=== PATIENT | male | born 1930 | race Caucasian/White ===

== ENCOUNTER → 2018-03-23 | Outpatient (CLI) | payer OTHER | END | disposition home or self-care (01) | LOC: RAH 09:49 | PROVIDERS: ATTEND Nurse Practitioner Family | DX: K80.20 Calculus of gallbladder without cholecystitis without obstruction (principal); K44.9 Diaphragmatic hernia without obstruction or gangrene; I10 Essential (primary) hypertension; E55.9 Vitamin D deficiency, unspecified; D48.5 Neoplasm of uncertain behavior of skin; E78.00 Pure hypercholesterolemia, unspecified | CPT/HCPCS: 74176 ==

== ENCOUNTER 2020-05-15 10:48 | Inpatient (IN) | payer OTHER ==
[~2020-05-15] VITALS: Ht 152.4 cm; Wt 56.6 kg
[2020-05-15 11:26] LABS: HEMATOCRIT 35.7 % (42-54); LYMPHOCYTES % (AUTO) 23.8 % (21.0-51.0); MEAN CORPUSCULAR HEMOGLOBIN 37.3 pg (27.0-33.0); MEAN CORPUSCULAR HGB CONC 33.6 g/dL (32.0-36.0); MEAN CORPUSCULAR VOLUME 110.9 fL (79-99); MONOCYTES % (AUTO) 27.3 % (3.0-13.0); NEUTROPHILS % (AUTO) 46.6 % (40.0-77.0); PLATELET COUNT (AUTO) 171 K/uL (130-400); RED BLOOD CELL COUNT(AUTO) 3.22 MIL/uL (4.50-6.20); RED CELL DISTRIBUTION WIDTH 13.9 % (11.0-15.5); WHITE BLOOD COUNT (AUTO) 2.6 K/uL (4.8-10.8)
[2020-05-15 11:38] LABS: INR 0.99 (0.85-1.15); PARTIAL THROMBOPLASTIN TIME 22.3 SEC (26.3-35.5); PROTHROMBIN TIME 10.7 SEC (9.6-11.6)
[2020-05-15 11:53] LABS: CREATININE 0.9 mg/dL (0.5-1.5); POTASSIUM 4.4 mmol/L (3.5-5.1)
[2020-05-15 12:03] LABS: BILIRUBIN,TOTAL 0.6 mg/dL (0.2-1.0); TOTAL PROTEIN, SERUM 8.1 g/dL (6.0-8.3)
[2020-05-15 12:56] LABS: BAND NEUTROPHILS % (MANUAL) 5 % (0-2); LYMPHOCYTES % (MANUAL) 36 % (22-44); MAN.DIFF COMMENT-IMPRESSION MANUAL DIFFERENTIAL; MONOCYTES % (MANUAL) 17 % (2-9); SEGMENTED NEUTROPHILS % 42 % (40-70)
[2020-05-15 12:57] LABS: PLATELET MORPHOLOGY COMMENT ADEQUATE
[2020-05-15 16:40] LABS: APPEARANCE,URINE Clear (CLEAR); BILIRUBIN,URINE Negative (NEGATIVE); COLOR,URINE Yellow (YELLOW); GLUCOSE, URINE (UA) Negative (NEGATIVE); KETONES,URINE 15 mg/dL (NEGATIVE); LEUKOCYTE ESTERASE ,URINE Negative (NEGATIVE); NITRATE,URINE Negative (NEGATIVE); OCCULT BLOOD,URINE Nonhemolyzed Trace (NEGATIVE); PH,URINE 5.5 (5.0-8.0); PROTEIN,URINE POS 1+ mg/dL (NEGATIVE)
[2020-05-15 16:46] LABS: AMPHET/METH SCREEN,URINE NEGATIVE (NEGATIVE); BARBITURATE SCREEN, URINE NEGATIVE (NEGATIVE); BENZODIAZEPINES SCREEN,URINE NEGATIVE (NEGATIVE); CANNABINOID SCREEN,URINE NEGATIVE (NEGATIVE); COCAINE SCREEN,URINE NEGATIVE (NEGATIVE); OPIATE SCREEN,URINE NEGATIVE (NEGATIVE); PHENCYCLIDINE SCREEN,URINE NEGATIVE (NEGATIVE)
[2020-05-15 16:58] LABS: BACTERIA,URINE Few /HPF (None Seen); SQUAMOUS EPITHELIAL CELL,UR Few /HPF (0-2)
[2020-05-15 16:59] LABS: MUCUS,URINE Many LPF (None Seen)
[2020-05-15] MEDS ORDERED: CEFTRIAXONE SODIUM 1 GM ONE (17:40)
[2020-05-15] MEDS ORDERED: IOHEXOL-350 75 ML VIAL IV ONE (19:15)
[2020-05-15] MEDS: SODIUM CHLORIDE 0.9% 1000ML 1,000 ML IV SCH (19:28)
[2020-05-15] MEDS ORDERED: NITROGLYCERIN 0.4 MG SL TAB SL PRN (19:30)
[2020-05-15] MEDS ORDERED: ONDANSETRON HCL 4 MG/2 ML VIAL IV PRN (19:30)
[2020-05-15] MEDS ORDERED: DIPHENHYDRAMINE HCL 25 MG CAPSULE PO PRN (19:30)
[2020-05-15] MEDS ORDERED: ACETAMINOPHEN 325 MG TAB PO PRN ×2 (19:30)
[2020-05-15] MEDS ORDERED: ATORVASTATIN CALCIUM 40 MG TABLET ONE (21:32)
[2020-05-15] MEDS ORDERED: FAMOTIDINE/PF 20 MG/2 ML VIAL IV ONE (21:32)
[2020-05-16] MEDS: SODIUM CHLORIDE 0.9% 1000ML 1,000 ML IV SCH ×2 (05:28→15:28)
[2020-05-16] MEDS ORDERED: ASPIRIN 81MG TAB.CHEW ONE (08:27)
[2020-05-16] MEDS ORDERED: FAMOTIDINE/PF 20 MG/2 ML VIAL IV ONE (08:28)
[2020-05-16] MEDS: FAMOTIDINE/PF 20 MG/2 ML VIAL IV SCH (09:00)
[2020-05-16] MEDS ORDERED: LORAZEPAM 2 MG/ML 1 ML VIAL ONE ×3 (09:57→16:54)
[2020-05-16] MEDS ORDERED: HYDRALAZINE HCL 20 MG/ML VIAL IM PRN (10:15)
[2020-05-16] MEDS ORDERED: LORAZEPAM 0.5 MG TABLET PO PRN (16:00)
--- NOTE | 2020-05-16 16:20 | NUR ---
DYSPHAGIA EVAL ATTEMPTED STERILIZATION TECHNICIAN COORDINATED WITH NURSE CARROL. PATIENT IN HALLWAY DEMANDING TO LEAVE. STERILIZATION TECHNICIAN ATTEMPTED TO TALK TO PATIENT IN HALLWAY BUT HE CONTINUED TO RUN AWAY. PATIENT BROUGHT BACK TO ROOM BUT REFUSED ANY EVALUATION. STERILIZATION TECHNICIAN WILL ATTEMPT EVALUATION TOMORROW AND CONTINUE TO FOLLOW. Addendum: 05/16/[address] LAY CASTILLO Amended: Links added.
--- NOTE | 2020-05-16 17:21 | NUR ---
KASSI LEAHY spoke to patient's son, Yair Roa, [phone]. No home services but son pays for private sitter from 1pm-5pm. Patient also attends [facility]. Patient needs help with ADL's and does not drive. [place] DCP [place]. Addendum: 05/16/20 at 1727 by CARROL LEDBETTER SS Amended: Links added.
--- NOTE | 2020-05-16 17:28 | NUR ---
Patient's son states that patient has not bathed for a long time. Private sitter has encouraged patient to take a shower but patient refuses.
[2020-05-16] MEDS ORDERED: LORAZEPAM 2 MG/ML 1 ML VIAL IM ONE (18:05)
[2020-05-17] MEDS: SODIUM CHLORIDE 0.9% 1000ML 1,000 ML IV SCH ×2 (01:28→13:56)
[2020-05-17] MEDS ORDERED: LORAZEPAM 0.5 MG TABLET PO PRN (14:00)
--- NOTE | 2020-05-17 15:05 | NUR ---
DYSPHAGIA KARINA COMPLETED. S/S OF ASPIRATION AT THIS TIME. RECOMMEND REGULAR SOLIDS, THIN LIQUIDS, AND PILLS WHOLE WITH LIQUIDS TOLERATED. PANTOGRAPH MACHINE SET UP OPERATOR EDUCATED Pt ON RISKS AND CONSEQUENCES OF ASPIRATION. ALL QUESTIONS ANSWERED AT THIS TIME. PANTOGRAPH MACHINE SET UP OPERATOR COORDINATED WITH NURSE TAYLOR. Addendum: 05/17/[address] LAY CASTILLO Amended: Links added.
[2020-05-17 16:04] VITALS: BP 155/69
[2020-05-17] MEDS ORDERED: LORAZEPAM 2 MG/ML 1 ML VIAL ONE (17:45)
--- NOTE | 2020-05-18 07:49 | NUR ---
Patient still in ER department 05/18/20,awaiting for patient to be transferred to medical floor inorder to be able to initiate skilled Physical Therapy Evaluation as ordered by Rodrick Burgos Jr,AGACNPBC Addendum: 05/18/20 at 0751 by LORAINE OZUNA, PT PT Amended: Links added.
[2020-05-18] MEDS ORDERED: ASPIRIN 81MG TAB.CHEW ONE (07:58)
[2020-05-18] MEDS ORDERED: FAMOTIDINE/PF 20 MG/2 ML VIAL IV ONE (07:58)
[2020-05-18 08:00] VITALS: BP 155/69
[2020-05-18] MEDS: FAMOTIDINE/PF 20 MG/2 ML VIAL IV SCH ×2 (09:00→20:28)
[2020-05-18 10:04] LABS: BASOPHILS % (AUTO) 0.2 % (0.0-5.0); EOSINOPHILS % (AUTO) 0.2 % (0.0-8.0); HEMATOCRIT 34.5 % (42-54); LYMPHOCYTES % (AUTO) 26.7 % (21.0-51.0); MEAN CORPUSCULAR HEMOGLOBIN 36.6 pg (27.0-33.0); MEAN CORPUSCULAR HGB CONC 33.3 g/dL (32.0-36.0); MEAN CORPUSCULAR VOLUME 109.9 fL (79-99); MONOCYTES % (AUTO) 37.2 % (3.0-13.0); NEUTROPHILS % (AUTO) 34.6 % (40.0-77.0); PLATELET COUNT (AUTO) 173 K/uL (130-400); RED BLOOD CELL COUNT(AUTO) 3.14 MIL/uL (4.50-6.20); WHITE BLOOD COUNT (AUTO) 4.5 K/uL (4.8-10.8)
[2020-05-18 10:27] LABS: ALBUMIN 3.7 g/dL (3.5-5.0); BILIRUBIN,TOTAL 0.8 mg/dL (0.2-1.0); CREATININE 0.9 mg/dL (0.5-1.5); POTASSIUM 3.6 mmol/L (3.5-5.1); THYROID STIMULATING HORMONE 3.33 uIU/mL (0.36-3.74); TOTAL PROTEIN, SERUM 7.7 g/dL (6.0-8.3)
[2020-05-18 10:30] LABS: HEMOGLOBIN A1C 5.8 % (4.0-6.0)
[2020-05-18 11:48] VITALS: BP 147/66
[2020-05-18 12:00] VITALS: BP 147/53
--- NOTE | 2020-05-18 13:23 | NUR ---
RD NOTIFICATION Pt admitted with acute encephalopathy. Currently with confusion, 1:1 Sitter. Pt transferred from ED. Admit Diet order placed 1319. Pt height and weight unavailable. PO intake unavailable. LBM unavailable. RD to follow up.
[2020-05-18] MEDS: SODIUM CHLORIDE 0.9% 1000ML 1,000 ML IV SCH (13:56)
--- NOTE | 2020-05-18 14:54 | NUR ---
CALL TO SON CHELA RODRIGUEZ DISCUSSED PATIENT DC PLAN. STATES PATIENT HAS MORE NEEDS, CAREGIVERS DO NOT STAY FOR VERY LONG AND SOMETIMES THERE ARE GAPS IN CARE- STATES BELIEVES PATIENT NEEDS PLACEMENT.,L PT IS SERVICE CONNECTED. [facility], ADVISED CHELA THAT [facility] BEDS ARE HARD TO COME BY- BUT WE WILL TRY CALL.. CALL TO [facility] NO LT [facility] B[facility], CALL TO [facility]- NO ANSWER- CALL TO G[facility] HAWKINS IN [facility]- WAS ADVISED THAT 2 NEGATIVE COVID TEST ARE NEEDED FOR ADMISSION. SENDING PKT TO ADMISSIONS AT LOCATED WITHIN [facility] FAX [phone] PHONE [phone] Addendum: 05/18/20 at 1502 by VIMAL HAN RN CM Amended: Links added.
[2020-05-18 15:17] VITALS: BP 125/73
[2020-05-18 16:00] VITALS: BP 125/73
[2020-05-18 19:30] VITALS: BP 123/71
--- NOTE | 2020-05-18 19:45 | NUR ---
PIV VHIC, FORGING PRESS LEVER TENDER ON THE FLOOR MAKING HIS ROUNDS. INFORMED THAT PT HAS NO PIV PT HAS BEEN REFUSING PIV RE-INSERTION SINCE HE WAS IN THE ER. FORGING PRESS LEVER TENDER STATED THAT LONG PT IS NOT ON TELE MONITOR, IT IS FINE TO KEEP IT OUT.
[2020-05-18] MEDS: ATORVASTATIN CALCIUM 40 MG TABLET PO SCH (20:26)
[2020-05-18] MEDS: ASPIRIN 81MG TAB.CHEW PO SCH (20:27)
--- NOTE | 2020-05-18 20:30 | NUR ---
MEDS SHIFT ASSESSMENT DONE, PLEASE REFER TO CHART. DUE PO MEDS ADMINISTERED, TOLERATED WELL. LONG LINES OPERATOR WAS ABOUT TO INSERT PIV BUT PT GOT UPSET AND REFUSED. PT UNABLE TO UNDERSTAND NEED FOR IV EVEN IF EXPLAINED TO HIM. PT IS VERY CONFUSED AND GETTING COMBATIVE AT THIS TIME. SITTER IN AND TRIED TO CALM PT DOWN. SITTER AT PT'S BEDSIDE. WILL MONITOR CLOSELY. Addendum: 05/19/20 at 0151 by MADELAINE LAINEZ RN RN Amended: Links added.
[2020-05-19] VITALS: BP 135/76
--- NOTE | 2020-05-19 02:00 | NUR ---
ROUNDS PT RESTING WELL. NO DISTRESS NOTED. KEPT RESTED AND COMFORTABLE. SITTER KEEPING CLOSE WATCH. WILL MONITOR CLOSELY.
--- NOTE | 2020-05-19 02:02 | NUR ---
MONITOR STILL NO AVAILABLE TELE MONITOR FOR PT. PT ALREADY A DNR/DNI. D/C TELE ORDER.
[2020-05-19 04:00] VITALS: BP 123/61
--- NOTE | 2020-05-19 04:21 | NUR ---
ORDER VHIC, [employer] BUS DRIVER/TEACHER ASSISTANT FOR HOSPITALIST, CALLED AND QUESTIONED ORDER FOR TELE PT WAS ADMITTED TO BE ON TELE. RESOURCE NURSE WAS MADE AWARE. NEW ORDERS PLACED, PLEASE REFER TO CPOE. RESOURCE NURSE SECURED TELE FOR PT.
--- NOTE | 2020-05-19 05:00 | NUR ---
TELE PT PLACED ON TELE MONITOR AND PT READING AT NSR ON THE 60'S. NO DISTRESS NOTED. SITTER IN ROOM MONITORING CLOSELY.
[2020-05-19 08:29] VITALS: BP 153/71
[2020-05-19] MEDS: FAMOTIDINE/PF 20 MG/2 ML VIAL IV SCH (09:00)
[2020-05-19 09:59] LABS: BASOPHILS % (AUTO) 0.3 % (0.0-5.0); EOSINOPHILS % (AUTO) 0.3 % (0.0-8.0); HEMATOCRIT 34.2 % (42-54); LYMPHOCYTES % (AUTO) 26.9 % (21.0-51.0); MEAN CORPUSCULAR HEMOGLOBIN 37.1 pg (27.0-33.0); MEAN CORPUSCULAR HGB CONC 33.6 g/dL (32.0-36.0); MEAN CORPUSCULAR VOLUME 110.3 fL (79-99); MONOCYTES % (AUTO) 39.3 % (3.0-13.0); NEUTROPHILS % (AUTO) 31.6 % (40.0-77.0); PLATELET COUNT (AUTO) 179 K/uL (130-400); RED CELL DISTRIBUTION WIDTH 13.9 % (11.0-15.5); WHITE BLOOD COUNT (AUTO) 3.9 K/uL (4.8-10.8)
[2020-05-19 10:33] LABS: ALBUMIN 3.6 g/dL (3.5-5.0); BILIRUBIN,TOTAL 0.8 mg/dL (0.2-1.0); CREATININE 0.9 mg/dL (0.5-1.5); POTASSIUM 3.8 mmol/L (3.5-5.1); TOTAL PROTEIN, SERUM 7.5 g/dL (6.0-8.3)
[2020-05-19] MEDS: ASPIRIN 81MG TAB.CHEW PO SCH (11:00)
[2020-05-19] MEDS: HYDRALAZINE HCL 20 MG/ML VIAL IV PRN ×2 (11:29→21:11)
--- NOTE | 2020-05-19 11:57 | NUR ---
CM Note: [facility] pending approval CM obtained telephone consent RANULFO from son Mr Roa. Faxed order, clinicals, PT, PAS[facility], Covid transfer form to [facility], confirmation received. Spoke to Judy will wait for clinicals, aware pending covid test today, will send result once available. Pt pending approval. EMS arranged and faxed for today in case pt receive approval, primary nurse to call [facility] once to [place]. Primary nurse aware. CM to cont to follow up.
[2020-05-19 12:04] VITALS: BP 178/94
--- NOTE | 2020-05-19 15:15 | NUR ---
COVID SWAB covid swab completed and sent to lab
[2020-05-19 16:38] VITALS: BP 133/71
[2020-05-19] MEDS: ATORVASTATIN CALCIUM 40 MG TABLET PO SCH (19:41)
[2020-05-19] MEDS: LORAZEPAM 2 MG/ML 1 ML VIAL IVP PRN (19:42)
--- NOTE | 2020-05-19 22:10 | NUR ---
patient refuses to be checked for vital signs and refuses any medication as well as iv fluids and an iv catheter. patient just wants to be left alone. at the moment, he is asleep in bed.
[2020-05-19] MEDS: SODIUM CHLORIDE 0.9% 1000ML 1,000 ML IV SCH (23:11)
[2020-05-19 23:47] VITALS: BP 120/62
[2020-05-20] VITALS (7 sets, daily range): BP systolic 117–173; BP diastolic 58–87
[2020-05-20 07:42] LABS: BASOPHILS % (AUTO) 0.3 % (0.0-5.0); EOSINOPHILS % (AUTO) 0.3 % (0.0-8.0); HEMATOCRIT 32.5 % (42-54); LYMPHOCYTES % (AUTO) 28.7 % (21.0-51.0); MEAN CORPUSCULAR HEMOGLOBIN 36.6 pg (27.0-33.0); MEAN CORPUSCULAR HGB CONC 32.9 g/dL (32.0-36.0); MEAN CORPUSCULAR VOLUME 111.3 fL (79-99); MONOCYTES % (AUTO) 36.8 % (3.0-13.0); PLATELET COUNT (AUTO) 165 K/uL (130-400); RED BLOOD CELL COUNT(AUTO) 2.92 MIL/uL (4.50-6.20); RED CELL DISTRIBUTION WIDTH 13.9 % (11.0-15.5); WHITE BLOOD COUNT (AUTO) 3.1 K/uL (4.8-10.8)
[2020-05-20 07:59] LABS: ALBUMIN 3.3 g/dL (3.5-5.0); BILIRUBIN,TOTAL 0.8 mg/dL (0.2-1.0); CREATININE 0.8 mg/dL (0.5-1.5)
[2020-05-20] MEDS: FAMOTIDINE/PF 20 MG/2 ML VIAL IV SCH (09:46)
[2020-05-20] MEDS: ASPIRIN 81MG TAB.CHEW PO SCH (09:46)
--- NOTE | 2020-05-20 11:40 | NUR ---
CM Note: [facility] pending approval CM spoke to Judy w/[facility], verbalized pt has full VA benefits, will verify w/[facility] for approval today. Pt pending approval at this time. EMS arranged for today in case pt receive approval, primary nurse aware to call [facility] once pt ready to DC. Primary nurse aware. CM to cont to follow up.
--- NOTE | 2020-05-20 11:56 | NUR ---
RD FOLLOW UP Pt tolerating Heart healthy diet order, no report of GI distress, good PO intake, as per RN. Pt continues with 1:1 sitter and confusion. Pending covid test results per EMR. RD to continue to monitor. Please notify as nutrition concerns arise. Thank you.
[2020-05-20] MEDS: ATORVASTATIN CALCIUM 40 MG TABLET PO SCH (18:27)
[2020-05-20] MEDS: SODIUM CHLORIDE 0.9% 1000ML 1,000 ML IV SCH (20:19)
[2020-05-20] MEDS: HYDRALAZINE HCL 20 MG/ML VIAL IV PRN (20:19)
[2020-05-21] MEDS: HYDRALAZINE HCL 20 MG/ML VIAL IV PRN ×2 (01:31→21:39)
[2020-05-21 03:00] VITALS: BP 156/72
--- NOTE | 2020-05-21 07:34 | NUR ---
patient refused for labeling specialist, bernard, to draw blood on him
[2020-05-21 08:00] VITALS: BP 133/64
[2020-05-21 10:07] LABS: BASOPHILS % (AUTO) 0.3 % (0.0-5.0); EOSINOPHILS % (AUTO) 0.3 % (0.0-8.0); LYMPHOCYTES % (AUTO) 18.7 % (21.0-51.0); MEAN CORPUSCULAR HEMOGLOBIN 36.6 pg (27.0-33.0); MEAN CORPUSCULAR VOLUME 110.7 fL (79-99); MONOCYTES % (AUTO) 36.6 % (3.0-13.0); NEUTROPHILS % (AUTO) 39.9 % (40.0-77.0); PLATELET COUNT (AUTO) 179 K/uL (130-400); RED BLOOD CELL COUNT(AUTO) 2.98 MIL/uL (4.50-6.20); RED CELL DISTRIBUTION WIDTH 13.9 % (11.0-15.5); WHITE BLOOD COUNT (AUTO) 3.6 K/uL (4.8-10.8)
[2020-05-21 10:17] LABS: CREATININE 0.9 mg/dL (0.5-1.5); POTASSIUM 3.4 mmol/L (3.5-5.1)
[2020-05-21] MEDS: MEROPENEM 1 GM VIAL IVP SCH ×2 (10:18→17:38)
[2020-05-21] MEDS: FAMOTIDINE/PF 20 MG/2 ML VIAL IV SCH (10:19)
[2020-05-21] MEDS: ASPIRIN 81MG TAB.CHEW PO SCH (10:23)
[2020-05-21 12:00] VITALS: BP 122/50
[2020-05-21 16:00] VITALS: BP 115/85
--- NOTE | 2020-05-21 16:14 | NUR ---
CM Note: [facility] approval CM faxed covid result to [facility]. Spoke to Judy olmstead/MARIELLA, pt has approval, just pending to son to return call. Will call CM once pt clear to transfer. EMS arranged for today, primary nurse to call [facility] once pt ready to DC. Primary nurse aware. CM to cont to follow up.
[2020-05-21 20:00] VITALS: BP 175/97
[2020-05-21] MEDS: ATORVASTATIN CALCIUM 40 MG TABLET PO SCH (21:38)
[2020-05-21] MEDS: SODIUM CHLORIDE 0.9% 1000ML 1,000 ML IV SCH (21:38)
[2020-05-21] MEDS: LORAZEPAM 2 MG/ML 1 ML VIAL IVP PRN (21:39)
[2020-05-22] VITALS: BP 133/75
[2020-05-22] MEDS: MEROPENEM 1 GM VIAL IVP SCH ×3 (02:20→21:39)
[2020-05-22 04:00] VITALS: BP 144/80
[2020-05-22 08:00] VITALS: BP 160/83
[2020-05-22] MEDS: FAMOTIDINE/PF 20 MG/2 ML VIAL IV SCH (09:00)
[2020-05-22] MEDS: ASPIRIN 81MG TAB.CHEW PO SCH (09:00)
[2020-05-22 10:53] LABS: EOSINOPHILS % (AUTO) 0.3 % (0.0-8.0); HEMATOCRIT 31.3 % (42-54); LYMPHOCYTES % (AUTO) 25.9 % (21.0-51.0); MEAN CORPUSCULAR HEMOGLOBIN 36.8 pg (27.0-33.0); MEAN CORPUSCULAR HGB CONC 33.5 g/dL (32.0-36.0); MEAN CORPUSCULAR VOLUME 109.8 fL (79-99); MONOCYTES % (AUTO) 42.1 % (3.0-13.0); NEUTROPHILS % (AUTO) 27.4 % (40.0-77.0); PLATELET COUNT (AUTO) 168 K/uL (130-400); RED BLOOD CELL COUNT(AUTO) 2.85 MIL/uL (4.50-6.20); RED CELL DISTRIBUTION WIDTH 14.1 % (11.0-15.5); WHITE BLOOD COUNT (AUTO) 3.5 K/uL (4.8-10.8)
[2020-05-22 11:10] LABS: ALBUMIN 3.1 g/dL (3.5-5.0); BILIRUBIN,TOTAL 0.5 mg/dL (0.2-1.0); CREATININE 0.8 mg/dL (0.5-1.5); POTASSIUM 3.5 mmol/L (3.5-5.1); TOTAL PROTEIN, SERUM 6.7 g/dL (6.0-8.3)
[2020-05-22 12:00] VITALS: BP 142/65
[2020-05-22 16:00] VITALS: BP 181/76
--- NOTE | 2020-05-22 16:00 | NUR ---
cm note per Judy at [facility], now trying to find bed at [facility], Per Judy she asked Dale butcher OK to use WNR, and she said yes, however no beds yet will notify CM
--- NOTE | 2020-05-22 16:09 | NUR ---
VTE measures: Notified Tiff Oconnell NP of current VTE measures with SCDs for history of CVA 2019. Tiff Oconnell NP to review current medications. No new orders received.
[2020-05-22] MEDS: HYDRALAZINE HCL 20 MG/ML VIAL IV PRN (16:22)
[2020-05-22] MEDS: SODIUM CHLORIDE 0.9% 1000ML 1,000 ML IV SCH (16:22)
[2020-05-22] MEDS ORDERED: LACTULOSE 20 GM/30 ML UDCUP PO PRN (16:30)
[2020-05-22 19:20] VITALS: BP 125/63
[2020-05-22] MEDS: ATORVASTATIN CALCIUM 40 MG TABLET PO SCH (21:39)
[2020-05-23] VITALS (14 sets, daily range): BP systolic 107–177; BP diastolic 57–79
[2020-05-23] MEDS: MEROPENEM 1 GM VIAL IVP SCH ×3 (02:00→17:10)
[2020-05-23] MEDS: HYDRALAZINE HCL 20 MG/ML VIAL IV PRN ×2 (02:26→23:46)
[2020-05-23] MEDS: FAMOTIDINE/PF 20 MG/2 ML VIAL IV SCH (08:35)
[2020-05-23] MEDS: ASPIRIN 81MG TAB.CHEW PO SCH (08:35)
[2020-05-23] MEDS: ENOXAPARIN SODIUM 30 MG/0.3 ML SQ SCH (08:36)
[2020-05-23] MEDS: SODIUM CHLORIDE 0.9% 1000ML 1,000 ML IV SCH ×2 (13:56→20:55)
--- NOTE | 2020-05-23 14:54 | NUR ---
cm note spoke to barrera with HNR/WNR and states there is no bed available for pt yet. will let cm know when available.
[2020-05-23] MEDS: ATORVASTATIN CALCIUM 40 MG TABLET PO SCH (19:58)
--- NOTE | 2020-05-23 19:58 | NUR ---
MEDS SHIFT ASSESSMENT DONE, PLEASE REFER TO CHART. DUE MEDS ADMINISTERED, TOLERATED WELL. KEPT RESTED AND COMFORTABLE. SITTER AT BEDSIDE IN ATTENDANCE TO NEEDS AT THIS TIME. WILL MONITOR PT. Addendum: 05/23/20 at 2148 by MADELAINE LAINEZ RN RN Amended: Links added.
--- NOTE | 2020-05-23 23:46 | NUR ---
BP PT HAD AN EPISODE OF CONFUSION WANTING TO WALK BY HIMSELF. PT RE-ORIENTED TO PERSON, TIME AND SPACE. PT ASSISTED BACK IN BED AND KEPT COMFORTABLE. V/S MONITORED, BP ELEVATED AT 175/75. MEDICATED WITH HYDRALAZINE IV. WILL RE-CHECK BP. Addendum: 05/24/20 at 0016 by MADELAINE LAINEZ RN RN Amended: Links added.
[2020-05-24] VITALS (7 sets, daily range): BP systolic 147–162; BP diastolic 63–86
[2020-05-24] MEDS: MEROPENEM 1 GM VIAL IVP SCH ×3 (01:13→19:17)
--- NOTE | 2020-05-24 01:13 | NUR ---
MEDS PT IS RESTING WELL, FAIRLY ASLEEP. NO DISTRESS NOTED. PT AWAKENS TO RE-CHECK FC=[id number], HR=65. DUE MEDS ADMINISTERED. KEPT COMFORTABLE IN BED. SITTER KEEPING CLOSE WATCH.
--- NOTE | 2020-05-24 04:00 | NUR ---
[facility]AT[facility] 2 PCP IN AND GAVE PT A BED BATH. PT WAS NOT VERY COOPERATIVE BUT TOLERATED ACTIVITY WELL. PT WAS CALM AND QUITE AFTER BATHING. KEPT COMFORTABLE IN BED. WILL CONTINUE TO MONITOR CLOSELY WITH SITTER.
[2020-05-24] MEDS: ASPIRIN 81MG TAB.CHEW PO SCH (09:29)
[2020-05-24] MEDS: ENOXAPARIN SODIUM 30 MG/0.3 ML SQ SCH (09:29)
[2020-05-24] MEDS: FAMOTIDINE/PF 20 MG/2 ML VIAL IV SCH (09:29)
[2020-05-24] MEDS: SODIUM CHLORIDE 0.9% 1000ML 1,000 ML IV SCH ×2 (13:56→22:29)
[2020-05-24] MEDS: ATORVASTATIN CALCIUM 40 MG TABLET PO SCH (19:17)
--- NOTE | 2020-05-24 22:30 | NUR ---
IV SITE IV LEAKING, SITE PINK, SLIGHTLY PUFFY, DISCONTINUED IV FLUIDS, PATIENT REFUSES NEW IV START, CHARGE NURSE NOTIFIED, WILL ATTEMT WHEN PATIENT BECOMES CALM Addendum: 05/25/20 at 0016 by MARKELL KEVIN LVN Amended: Links added.
[2020-05-25] MEDS: MEROPENEM 1 GM VIAL IVP SCH ×3 (03:29→18:48)
[2020-05-25 04:00] VITALS: BP 164/74
[2020-05-25 07:11] VITALS: BP 180/73
[2020-05-25 10:27] LABS: EOSINOPHILS % (AUTO) 0.3 % (0.0-8.0); HEMATOCRIT 34.8 % (42-54); LYMPHOCYTES % (AUTO) 26.9 % (21.0-51.0); MEAN CORPUSCULAR HEMOGLOBIN 36.4 pg (27.0-33.0); MEAN CORPUSCULAR HGB CONC 33.3 g/dL (32.0-36.0); MEAN CORPUSCULAR VOLUME 109.1 fL (79-99); MONOCYTES % (AUTO) 43.4 % (3.0-13.0); NEUTROPHILS % (AUTO) 25.9 % (40.0-77.0); PLATELET COUNT (AUTO) 197 K/uL (130-400); RED BLOOD CELL COUNT(AUTO) 3.19 MIL/uL (4.50-6.20); RED CELL DISTRIBUTION WIDTH 13.8 % (11.0-15.5); WHITE BLOOD COUNT (AUTO) 3.8 K/uL (4.8-10.8)
[2020-05-25 10:58] LABS: ALBUMIN 3.5 g/dL (3.5-5.0); BILIRUBIN,TOTAL 0.7 mg/dL (0.2-1.0); CREATININE 0.7 mg/dL (0.5-1.5); POTASSIUM 3.8 mmol/L (3.5-5.1); TOTAL PROTEIN, SERUM 7.6 g/dL (6.0-8.3)
[2020-05-25 11:03] VITALS: BP 177/64
[2020-05-25] MEDS: FAMOTIDINE/PF 20 MG/2 ML VIAL IV SCH (12:13)
[2020-05-25] MEDS: ENOXAPARIN SODIUM 30 MG/0.3 ML SQ SCH (12:14)
[2020-05-25] MEDS: ASPIRIN 81MG TAB.CHEW PO SCH (12:15)
--- NOTE | 2020-05-25 14:50 | NUR ---
CM Note: [facility] CM spoke to Judy Frances, verbalized [facility], pt currently pending approval at this time. EMS arranged for today in case, primary nurse aware to call [facility] once pt ready to DC. Primary nurse aware. CM to cont to follow up.
[2020-05-25 15:30] VITALS: BP 168/72
--- NOTE | 2020-05-25 16:29 | NUR ---
CM Note: [facility] approval CM spoke to Judy Frances, pt has approval and acceptance. EMS arranged and faxed, primary nurse to call [facility] one pt ready to DC. Primary nurse aware. CM to cont to follow up.
--- NOTE | 2020-05-25 17:44 | NUR ---
174 REPORT GIVEN TO KWAKU NURSE AT [facility], PT [id number] R/T DEMENTIA, PT IS 1:1 D/T FALL RISK AND CONFUSION. PT STABLE NO DISTRESS. PT DRESSED IN HOME CLOTHING AND BELONGINGS AT BEDSIDE. CALLED EMS AT 183 FOR TRANSPORT. REPORT AND D/C INSTRUCTIONS GIVEN TO FLOOR NURSE AT SHIFT CHANGE 1932, PT RESTING IN BED, EMS ON ROUTE AT TIME FOR TRANSFER.
--- NOTE | 2020-05-25 19:44 | NUR ---
NOTE 1943 RECEIVED CALL FROM ANGELINA ADMISSION DIRECTOR FROM [facility] TO NOTIFY THAT PATIENT IS NOT GOING TO BE ACCEPTED DUE TO CURRENT ORDER FOR 1;1 SITTER THEY DO NOT HAVE STAFF TO ACCOMMODATE. SAYS IN ORDER FOR PATIENT TO BE ACCEPTED TO FACILITY WILL NEED A DISCONTINUATION OF THE SITTER ORDER AND FOR PATIENT TO BE ON OBSERVATION FOR 24HRS WITHOUT SITTER. 1948 REVIEWED CHART, FOUND NO ORDER TO DC SITTER. CONTACTED SALES REPRESENTATIVE SUPERVISOR TO INFORM OF SITUATION ZEB ACOSTA RN. SHE STATED THAT PATIENT DID NOT HAVE SITTER TODAY, BUT WILL CONTACT BACK GRAY CLOTH WASHER DIRECTOR ABOUT CASE. 1953 CONTACTED ANSWERING SERVICE FOR HOSPITALIST. SPOKE WITH ZEB, SHE SAYS WILL NEED TO OBTAIN THE ORDER FOR DISCONTINUATION. TOLD HER WAS IN PROCESS OF CONTACTING HOSPITALIST. [address] BACK FROM DR. CHUCK PIKE AND EXPLAINED SITUATION AND WHAT ANGELINA SAID. RECEIVED ORDER TO DISCONTINUE SITTER TO FULFILL FACILITIES REQUIREMENT FOR ACCEPTANCE. 2013 CONTACTED SALES REPRESENTATIVE SUPERVISOR. SPOKE WITH TERRANCE DELGADO RN. NOTIFIED THAT ORDER WAS OBTAINED TO D/C SITTER. OBTAINED NUMBER TO CONTACT EMS TO CANCEL TRANSPORT AND CALLED THEM TO NOTIFY. NOTIFIED PATIENT OF SITUATION. 2043 CALLED SON CHELA AND NOTIFIED WELL THAT PATIENT WILL REMAIN HERE TONIGHT AND REASON. ACKNOWLEDGED UNDERSTANDING.
[2020-05-25] MEDS: HYDRALAZINE HCL 20 MG/ML VIAL IV PRN (20:43)
[2020-05-25] MEDS: ATORVASTATIN CALCIUM 40 MG TABLET PO SCH (20:43)
[2020-05-25 21:25] VITALS: BP 188/80
[2020-05-26 00:28] VITALS: BP 149/62
[2020-05-26] MEDS: MEROPENEM 1 GM VIAL IVP SCH ×3 (03:32→18:00)
[2020-05-26 06:19] VITALS: BP 103/47
--- NOTE | 2020-05-26 06:32 | NUR ---
NOTE PATIENT HAS REMAINED COOPERATIVE AND HAS NOT HAD ANY EPISODES OF AGITATION. NO NEED FOR MEDICATING WITH ATIVAN.
[2020-05-26 08:07] VITALS: BP 150/67
--- NOTE | 2020-05-26 11:04 | NUR ---
CM Note: WNR transfer delay CM spoke to Judy olmstead/KAYLA. As per primary nurse pt been off 1:1 @ 3pm yesterday, nurse order off 1:1 late entry at 8pm. Facility requested transfer after 8pm as pt need to be off 1:1 for 24hrs and they're going by the time order was entered. EMS arranged for today, primary nurse to give report at 5pm, call EMS by 8pm for transfer. Primary nurse Delia aware. Fadia Tang CM Director aware of delay transfer. CM to cont to follow up.
[2020-05-26] MEDS: FAMOTIDINE/PF 20 MG/2 ML VIAL IV SCH (11:17)
[2020-05-26] MEDS: ASPIRIN 81MG TAB.CHEW PO SCH (11:17)
[2020-05-26] MEDS: ENOXAPARIN SODIUM 30 MG/0.3 ML SQ SCH (11:18)
[2020-05-26 12:29] VITALS: BP 142/84
[2020-05-26 16:10] VITALS: BP 176/74
[2020-05-26 19:00] VITALS: BP 165/84
[2020-05-26] MEDS: ATORVASTATIN CALCIUM 40 MG TABLET PO SCH (20:20)
--- NOTE | 2020-05-26 22:30 | NUR ---
called EMS and they said that there were 2 patients in front of Mr. Trevino, so "it will take a while" he said.
[2020-05-27] VITALS: BP 150/80
[2020-05-27] MEDS: MEROPENEM 1 GM VIAL IVP SCH (01:25)
--- NOTE | 2020-05-27 01:30 | NUR ---
patient's 22 gauge catheter removed. catheter tip intact. patient's telemetry removed as well. patient alert and oriented x 1.
--- NOTE | 2020-05-27 01:45 | NUR ---
a male and female EMS arrived and took patient to [facility]. no issues.
== END 2020-05-27 01:50 | DRG 69 ==
LOC: EDH 10:48 → EDHIP 19:28 → 3CH 05-18 09:31
PROVIDERS: ADMIT Internal Medicine; ATTEND Internal Medicine
DX: G45.9 Transient cerebral ischemic attack, unspecified (principal); N39.0 Urinary tract infection, site not specified; G93.40 Encephalopathy, unspecified; F03.90 Unspecified dementia, unspecified severity, without behavioral disturbance, psychotic disturbance, mood disturbance, and anxiety; Z86.73 Personal history of transient ischemic attack (TIA), and cerebral infarction without residual deficits; I10 Essential (primary) hypertension; B96.20 Unspecified Escherichia coli [E. coli] as the cause of diseases classified elsewhere; G51.0 Bell's palsy; Z66 Do not resuscitate; Z20.828 Contact with and (suspected) exposure to other viral communicable diseases
CPT/HCPCS: 36415; 70450; 70496; 70498; 71045; 72125; 80048; 80053; 80305; 81001; 82140; 82550; 82607; 83036; 83721; 83735; 84443; 84484; 85025; 85610; 85730; 87077; 87088; 87186; 92610; 93005; 95816; G0378; J0360; J0696; J1650; J2060; J2185; J3490; J7030; Q9967; U0003